=== PATIENT | female | born 1990 | race Caucasian/White ===

== ENCOUNTER 2016-07-22 17:04 | Emergency (ER) | payer SELFPAY ==
[~2016-07-22] VITALS: Ht 162.6 cm; Wt 60.0 kg
[2016-07-22 17:07] VITALS: BP 138/93; PULSE 93; RESP 20
[2016-07-22 17:17] VITALS: PULSE 89; TEMP 99; O2SAT 97
[2016-07-22] MEDS ORDERED: AMOX500C PO (17:43)
[2016-07-22] MEDS ORDERED: ERYTOIN10 LEFT EYE (17:43)
[2016-07-22] MEDS ORDERED: IBUP800T23 PO (17:43)
[2016-07-22] MEDS ORDERED: BACT800T5 PO (17:43)
--- NOTE | 2016-07-22 17:43 | PD ---
HPI Chief Complaint: Eye Problems/Injury Time Seen by Provider: 17:40 Travel History International Travel<30 days: No Contact w/Intl Traveler<30days: No Traveled to known affect area: No History of Present Illness HPI 26-year-old female presents to the emergency Department with complaint of left eye pain and swelling for over 2 weeks. She thought she got something in her eye a little over 2 weeks ago and tried taking it out. She did follow up at [facility] and was told she had a corneal abrasion which they treated antibiotic eyedrops. She was not getting better with eyedrops so she went back and followed up again [facility] and was given another eyedrop that she could not afford it and continue to use the eyedrop that she had previously been prescribed. Reports swelling to upper and lower eyelids. Reports eye pain. Reports blurry vision. Reports yellowish drainage from her eye. Reports photophobia. Denies fever, chills, nausea, vomiting. Has not taken any other medications or tried any other treatments other than the antibiotic eye drops for symptom relief. No known allergies. No other modifying factors or associated signs and symptoms. PFSH Past Medical History Diminished Hearing: No ?: Not Social History Alcohol Use: Yes (BEER ON WEEKENDS) Tobacco Use: Yes (05/11 PPD) Substance Use: Yes (THC DAILY) Allergies-Medications (Allergen,Severity, Reaction): Coded Allergies: No Known Allergies (Unverified , 07/22/16) Reported Meds & Prescriptions Reported Meds & Active Scripts Active Ibuprofen 800 Mg Tab 800 Mg PO Q6HR PRN Bactrim DS (Sulfamethoxazole-Trimethoprim) 800-160 Mg Tab 1 Tab PO BID 10 Days Amoxicillin 500 Mg Cap 500 Mg PO BID 10 Days Erythromycin Opth Oint 5 Mg/Gm Oint 1 Applic LEFT EYE QID 7 Days Review of Systems Except as stated in HPI: all other systems reviewed are Neg Physical Exam Narrative GENERAL: Well-nourished, well-developed female patient, in no acute distress; afebrile, nontoxic. SKIN: Warm and dry. HEAD: Atraumatic. Normocephalic. EYES: Pupils equal and round at 2 mm with brisk reaction. PERRLA. EOMI. visual acuity both eyes 20/20, left eye 20/40, right 20/25. Left lid eversion with no foreign body noted. left eye with scleral erythema and lid edema consistent with preseptal cellulitis. No orbital tenderness, erythema or cellulitis. Left eye with photophobia. No consensual photophobia. No scleral icterus. Purulent, light yellowish drainage. Fox lamp exam reveals a pinpoint corneal abrasion at the 3:00 position over the iris. ENT: Mucosa pink and moist. Airway patent. NECK: Trachea midline. CARDIOVASCULAR: Regular rate. RESPIRATORY: No accessory muscle use. GASTROINTESTINAL: Flat. NEUROLOGICAL: Awake and alert. Oriented 3. No obvious cranial nerve deficits. Motor grossly within normal limits. Normal speech. PSYCHIATRIC: Appropriate mood and affect; insight and judgment normal. Data Data Last Documented VS Vital Signs Date Time Temp Pulse Resp B/P Pulse Ox O2 Delivery O2 Flow Rate FiO2 07/22/16 17:17 99.0 89 97 07/22/16 17:07 20 138/93 Room Air Orders Erythromycin 0.5% Opth Oint (Ilotycin 0. (07/22/16 17:45) Ibuprofen (Motrin) (07/22/16 17:45) Mandatory Outpatient Referral (07/22/16 17:58) [facility] Medical Decision Making Medical Screen Exam Complete: Yes Emergency Medical Condition: Yes Medical Record Reviewed: Yes Differential Diagnosis Preseptal cellulitis, corneal abrasion, eye foreign body Narrative Course 26-year-old female physical exam consistent with a left eye pinpoint corneal abrasion and preseptal cellulitis. Patient afebrile and nontoxic-appearing. Dr. Escalante, my attending physician, evaluated the patient and agrees with my treatment plan; she also recommends amoxicillin and Bactrim for preseptal cellulitis. Erythromycin ointment administered to the left eye prior to discharge from the ER. Ibuprofen administered in the ER. Amoxicillin, Bactrim , erythromycin eye ointment, and ibuprofen prescribed for home. Mandatory outpatient referral placed for patient to follow up with ophthalmology first thing on Monday. Instructed patient to follow up with ophthalmology and she verbalized understanding and agreement. Patient verbalizes understanding and agreement with treatment plan. Patient is medically cleared and stable for discharge. Discussed reasons to return to the emergency department. Instructed patient to follow up with primary care provider. Patient agrees with treatment plan. The patients vital signs are stable and the patient is stable for outpatient follow-up and treatment. Patient discharged home, stable and in no acute distress. Diagnosis Primary Impression: Corneal abrasion, left Qualified Code: S05.02XA - Corneal abrasion, left, initial encounter Additional Impression: Preseptal cellulitis of left eye Referrals: Ashley Richardson MDlease out worker Primary Care Physician Patient Instructions: Cellulitis (ED), Corneal Abrasion (ED), General Instructions Departure Forms: Tests/Procedures, Work Release Enter return to work date: Jul 27, 2016 Additional Instructions: Ibuprofen or Tylenol as directed and as needed to reduce pain Do not patch the eye Do not rub the eye Refrigerated eye drops as needed to reduce pain Cool compresses to the eye as needed to reduce pain Follow-up with ophthalmology on Monday; a mandatory referral for Dr. Dereck Richardson has been entered; call her office and make an appointment her information is in your discharge instructions Primary care provider Return to the emergency department immediately with worsening of symptoms Med/Other Pt SpecificInfo: Prescription(s) given Scripts Ibuprofen 800 Mg Ehs310 Mg PO Q6HR PRN (PAIN) #30 TAB Ref 0 Prov:Ela Hannah 07/22/16 Sulfamethoxazole-Trimethoprim (Bactrim DS)800-160 Mg Tab1 Tab PO BID 10 Days Ref 0 Prov:Ela Hannah 07/22/16 Amoxicillin 500 Mg Awt881 Mg PO BID 10 Days Ref 0 Prov:Ela Hannah 07/22/16 Erythromycin Opth Oint 5 Mg/Gm Oint1 Applic LEFT EYE QID 7 Days Ref 0 Prov:Ela Hannah 07/22/16 Disposition: 01 DISCHARGE HOME Condition: Stable Ela Hannah Jul 22, 2016 17:43
[2016-07-22] MEDS ORDERED: ERYTHROMYCIN 0.5% OPTH OINT 3.5 GM TUBO LEFT EYE ONE (17:45)
[2016-07-22] MEDS ORDERED: IBUPROFEN 800 MG TAB PO ONE (17:45)
[2016-08-01] MEDS ORDERED: PRED1SUS EACH EYE (15:35)
== END 2016-07-22 18:21 | disposition home or self-care (01) ==
LOC: NEPB 17:04
DX: S05.02XA Injury of conjunctiva and corneal abrasion without foreign body, left eye, initial encounter (principal); L03.213 Periorbital cellulitis; X58.XXXA Exposure to other specified factors, initial encounter; F17.210 Nicotine dependence, cigarettes, uncomplicated
CPT/HCPCS: 99284